=== PATIENT | female | born 1965 | race Caucasian/White ===

== ENCOUNTER → 2020-08-03 | Day surgery (SDC) | payer OTHER ==
[~2020-08-03] MED LIST: PROZAC20 MG PO; ZEGERID 20 MG1 EAC1 PO; ZYRTEC10 M3 PO
[2020-08-03 07:38] LABS: HCT 45.7 % (37.0-47.0); MCH 28.8 pg (25.0-31.0); MCHC 32.8 g/dL (32.0-36.0); MCV 87.7 fL (78.0-100.0); MPV 9.8 fL (6.0-9.5); RBC 5.21 M/uL (4.20-5.40); RDW 13.5 % (11.5-14.0); WBC 6.5 K/uL (4.0-10.5)
[2020-08-03 07:52] LABS: ALBUMIN 3.8 g/dL (3.4-5.0); BILIRUBIN - TOTAL 0.6 mg/dL (0.2-1.0); BUN/CREAT RATIO (CALC) 5.6 RATIO; CREATININE 0.9 mg/dL (0.51-0.95); GLOBULIN (CALCULATION) 3.9 g/dL; TOTAL PROTEIN 7.7 g/dL (6.4-8.2)
== END | disposition home or self-care (01) ==
LOC: FAS 06:56
PROVIDERS: Surgery
DX: Z12.11 Encounter for screening for malignant neoplasm of colon (principal); K57.30 Diverticulosis of large intestine without perforation or abscess without bleeding; K21.9 Gastro-esophageal reflux disease without esophagitis; F41.9 Anxiety disorder, unspecified; Z86.010 Personal history of colon polyps; Z99.89 Dependence on other enabling machines and devices; Z90.710 Acquired absence of both cervix and uterus; Z79.899 Other long term (current) drug therapy; Z20.822 Contact with and (suspected) exposure to COVID-19; Z90.10 Acquired absence of unspecified breast and nipple; Z90.722 Acquired absence of ovaries, bilateral; Z80.0 Family history of malignant neoplasm of digestive organs
CPT/HCPCS: 36415; 80053; J2704; J7120